=== PATIENT | male | born 1985 | race Caucasian/White ===

== ENCOUNTER 2017-09-08 11:32 | Emergency (ER) | payer OTHER ==
--- NOTE | 2017-09-08 11:57 | PDOC ---
History of Present Illness - History of Present Illness Initial Comments: 09/08/17 13:08 The patient is a 32 year old male, with a significant past medical history of kidney stones and lithotripsy (2 years ago at [facility]), who presents to the emergency department with left flank pain and intermittent nausea since 9AM this morning. The patient states this is a kidney stone. He reports the pain has been increasing in severity since the onset this morning. He reports the pain as localized to the left side of his back, however, also reports some mild left suprapubic discomfort. He denies alleviating or exacerbating factors of pain and rates his current pain a 10/10. He denies chest pain, shortness of breath, headache and dizziness. He denies fever, chills, vomit, diarrhea and constipation. He denies dysuria, frequency, urgency and hematuria. Allergies: NKDA Past surgical history: none reported Social history: Pt reports quitting tobacco 3 months ago. He reports occasional marijuana use. <Mel Juares - Last Filed: 09/08/17 13:08> - History of Present Illness Initial Comments: 09/08/17 14:05 Physical exam: Alert and oriented well-developed well-nourished acute distress due to left flank pain. Cooperative Afebrile, vital signs normal No pallor or icterus. PERRLA, ENT clear Neck supple without bruit mass or nodes Chest clear CV regular without murmur rub or gallop Abdomen nondistended. Bowel sounds normal. Mild CVAT and lower quadrant tenderness without guarding or rebound. No hernias. Testes without masses or tenderness. No urethral discharge Impression: Recurrent renal colic Plan: Symptomatic treatment, CT, and further urological consultation depending on results. <Roberto Cuenca - Last Filed: 09/09/17 07:56> - General Chief Complaint: Pain Stated Complaint: LEFT SIDE BACK GROIN PAIN Time Seen by Provider: 09/08/17 11:57 Past History <Mel Juares - Last Filed: 09/08/17 13:08> <Roberot Cuenca - Last Filed: 09/09/17 07:56> - Past Medical History Allergies/Adverse Reactions: Allergies Allergy/AdvReac Type Severity Reaction Status Date / Time tree nut Allergy Verified 09/09/17 01:27 Home Medications: Ambulatory Orders Amlodipine Besylate [Norvasc -] 10 mg PO DAILY 09/08/17 Losartan Potassium 180 mg PO DAILY 09/08/17 Tamsulosin HCl [Flomax] 0.4 mg PO DAILY #7 cap.er.24h 09/08/17 Ciprofloxacin [Cipro (Restricted To Id)] 500 mg PO BID #14 tablet 09/09/17 Ondansetron [Zofran Odt -] 4 mg SL TID #12 od.tablet 09/09/17 Oxycodone HCl/Acetaminophen [Percocet 5-325 mg Tablet] 1 - 2 tab PO Q4H #20 tablet MDD 8 09/09/17 Review of Systems - Review of Systems Able to Perform ROS?: Yes Comments:: 09/08/17 13:09 CONSTITUTIONAL: Absent: fever, chills, diaphoresis, generalized weakness, malaise, loss of appetite HEENT: Absent: rhinorrhea, nasal congestion, throat pain, throat swelling, difficulty swallowing, mouth swelling, ear pain, eye pain, visual Changes CARDIOVASCULAR: Absent: chest pain, syncope, palpitations, irregular heart rate, lightheadedness , peripheral edema RESPIRATORY: Absent: cough, shortness of breath, dyspnea with exertion, orthopnea, wheezing, stridor, hemoptysis GASTROINTESTINAL: Absent: abdominal pain, abdominal distension, nausea, vomiting, diarrhea, constipation, melena, hematochezia GENITOURINARY: (+) left flank pain and left suprapubic discomfort, Absent: dysuria, frequency, urgency, hesitancy, hematuria, genital pain MUSCULOSKELETAL: Absent: myalgia, arthralgia, joint swelling SKIN: Absent: rash, itching, pallor HEMATOLOGIC/IMMUNOLOGIC: Absent: easy bleeding, easy bruising, lymphadenopathy, frequent infections ENDOCRINE: Absent: unexplained weight gain, unexplained weight loss, heat intolerance, cold intolerance NEUROLOGIC: Absent: headache, focal weakness or paresthesia, dizziness, unsteady gait, seizure, mental status changes, bladder or bowel incontinence PSYCHIATRIC: Absent: anxiety, depression, suicidal or homicidal ideation, hallucinations <Mel Juares - Last Filed: 09/08/17 13:08> *Physical Exam - Vital Signs Last Vital Signs Temp Pulse Resp BP Pulse Ox 98.8 F 81 20 143/95 99 09/08/17 11:33 09/08/17 11:33 09/08/17 11:33 09/08/17 11:33 09/08/17 11:33 - Physical Exam Comments: 09/08/17 13:10 GENERAL: Well developed, well nourished. Awake and alert. No acute distress. HEENT: Normocephalic, atraumatic. PERRLA, EOMI. No conjunctival pallor. Sclera are non- icteric. Moist mucous membranes. Oropharynx is clear. NECK: Supple. Full ROM. No JVD. Carotid pulses 2+ and symmetric, without bruits. No thyromegaly. No lymphadenopathy. CARDIOVASCULAR: Regular rate and rhythm. No murmurs, rubs, or gallops. Distal pulses are 2+ and symmetric. PULMONARY: No evidence of respiratory distress. Lungs clear to auscultation bilaterally. No wheezing, rales or rhonchi. ABDOMINAL: (+) mild left suprapubic/LLQ discomfort to palpation. Soft. Non-distended. No rebound or guarding. No organomegaly. Normoactive bowel sounds. MUSCULOSKELETAL Normal range of motion at all joints. No bony deformities or tenderness. No CVA tenderness. EXTREMITIES: No cyanosis. No clubbing. No edema. No calf tenderness. SKIN: Warm and dry. Normal capillary refill. No rashes. No jaundice. NEUROLOGICAL: Alert, awake, appropriate. Cranial nerves 2-12 intact. No motor deficits in the upper extremities and lower extremities. Normoreflexic in the upper and lower extremities. Normal speech. Gait is normal without ataxia. PSYCHIATRIC: Cooperative. Good eye contact. Appropriate mood and affect. <Mel Juares - Last Filed: 09/08/17 13:08> ED Treatment Course - LABORATORY CBC & Chemistry Diagram: 09/08/17 12:11 09/08/17 12:11 - ADDITIONAL ORDERS Additional order review: Laboratory Results 09/08/17 09/08/17 12:11 12:02 Sodium 133 L Potassium 4.3 Chloride 99 Carbon Dioxide 24 Anion Gap 10 BUN 13 Creatinine 0.7 Creat Clearance w eGFR > 60 Random Glucose 118 H Calcium 9.5 Total Bilirubin 0.9 AST 22 ALT 26 Alkaline Phosphatase 56 Total Protein 7.5 Albumin 4.4 Urine Color Yellow Urine Appearance Clear Urine pH 6.0 Ur Specific [place] >= 1.030 H Urine Protein 1+ H Urine Glucose (UA) Negative Urine Ketones Negative Urine Blood 3+ H Urine Nitrite Negative Urine Bilirubin Negative Urine Urobilinogen 0.2 Ur Leukocyte Esterase Negative Urine RBC 20-30 Urine WBC 3-5 Ur Epithelial Cells Moderate Urine Bacteria Moderate 09/08/17 12:11 RBC 4.75 MCV 88.5 MCHC 33.8 RDW 12.1 MPV 9.2 Neutrophils % 65.0 Lymphocytes % 28.2 Monocytes % 5.4 Eosinophils % 0.7 Basophils % 0.7 - Medications Given in the ED: ED Medications Discontinued Medications Generic Name Dose Route Start Last Admin Trade Name Hernan PRN Reason Stop Dose Admin Sodium Chloride 1,000 mls @ 1,000 mls/hr 09/08/17 11:58 09/08/17 12:13 Normal Saline - IV 09/08/17 12:57 1,000 mls/hr ASDIR STA Administration Ketorolac Tromethamine 30 mg 09/08/17 11:58 09/08/17 12:19 Toradol Injection - IVPUSH 09/08/17 11:59 30 mg ONCE ONE Administration Morphine Sulfate 4 mg 09/08/17 12:55 09/08/17 13:06 Morphine Injection - IVPUSH 09/08/17 12:56 4 mg ONCE ONE Administration Ondansetron HCl 4 mg 09/08/17 12:55 09/08/17 13:07 Zofran Injection IVPB 09/08/17 12:56 4 mg ONCE ONE Administration <Mel Juares - Last Filed: 09/08/17 13:08> - LABORATORY CBC & Chemistry Diagram: 09/08/17 12:11 09/08/17 12:11 <Roberto Cuenca - Last Filed: 09/09/17 07:56> Medical Decision Making - Medical Decision Making 09/08/17 14:23 Laboratories reviewed. CBC and chemistries normal. Urinalysis with blood, 3+, 20 -30 red cells, 3-5 white cells. Likely kidney stone. Unlikely infection Patient is pain-free at present. He states he feels like the stone has passed. He refuses CAT scan at the present time, but will follow up with his primary physician and urologist within one week as recommended. Ibuprofen and Flomax prescribed. To return to the emergency room if there is fever, increased pain, or difficulty urinating, otherwise fully ambulatory and pain-free upon discharge to follow-up as directed 09/09/17 07:54 <Roberto Cuenca - Last Filed: 09/09/17 07:56> *DC/Admit/Observation/Transfer - Attestations Scribe Attestion: 09/08/17 13:10 Documentation prepared by Mel Juares, acting as medical insurance biller for Roberto Sexton MD <Mel Juares - Last Filed: 09/08/17 13:08> - Discharge Dispostion Admit: No <Roberto Cuenca - Last Filed: 09/09/17 07:56> Diagnosis at time of Disposition: Renal colic - Discharge Dispostion Disposition: HOME Condition at time of disposition: Improved - Prescriptions Prescriptions: Tamsulosin HCl [Flomax] 0.4 mg PO DAILY #7 cap.er.24h - Patient Instructions Printed Discharge Instructions: DI for Kidney Stones Additional Instructions: See urologist as soon as possible for further evaluation and treatment Return to the ER if there is severe pain that is uncontrolled with medication, or there is fever/chills, or other urinary tract symptoms.
[2017-09-08] MEDS ORDERED: SODIUM CHLORIDE 1,000 ML IV STA (11:58)
[2017-09-08] MEDS ORDERED: KETOROLAC TROMETHAMINE 30 MG/1 ML VIAL IVPUSH ONE (11:58)
[2017-09-08 12:05] LABS: URINE APPEARANCE Clear; URINE BILIRUBIN Negative (NEGATIVE); URINE GLUCOSE (UA) Negative (NEGATIVE); URINE KETONE Negative (NEGATIVE); URINE LEUK ESTERASE Negative (NEGATIVE); URINE NITRITE Negative (NEGATIVE); URINE UROBILINOGEN 0.2 (0.2-1.0)
[2017-09-08] MEDS ORDERED: KETOROLAC TROMETHAMINE 30 MG/1 ML VIAL ONE (12:05)
[2017-09-08 12:08] LABS: URINE BLOOD 3+ (NEGATIVE); URINE PROTEIN 1+ (NEGATIVE)
[2017-09-08 12:09] LABS: URINE COLOR YELLOW; URINE RBC 20-30 /hpf (0-3)
[2017-09-08 12:10] LABS: URINE BACTERIA MODERATE /hpf (NEGATIVE)
[2017-09-08 12:25] VITALS: BP 143/95; PULSE 81; TEMP 98.8; BMI 28.5
[2017-09-08 12:27] LABS: BASOPHIL 0.7 % (0-2.0); EOSINOPHIL 0.7 % (0-4.5); MCH 29.9 pg (25.7-33.7); MCHC 33.8 g/dl (32.0-35.9); MEAN CELL VOLUME 88.5 fl (80-96); MEAN PLT VOLUME 9.2 fl (7.5-11.1); PLATELET COUNT 256 K/MM3 (134-434); RDW 12.1 % (11.9-15.9); WHITE BLOOD COUNT 10.6 K/mm3 (4.0-10.8)
[2017-09-08 12:45] LABS: ALBUMIN 4.4 g/dl (3.5-5.0); ALK PHOS 56 U/L (32-92); ANION GAP 10 (8-16); BILIRUBIN,TOTAL 0.9 mg/dl (0.2-1.0); CALCIUM 9.5 mg/dl (8.4-10.2); CO2 24 mmol/L (22-28); CREATININE 0.7 mg/dl (0.6-1.3); GLUCOSE,RANDOM 118 mg/dl (74-106); SGOT/AST 22 U/L (10-42); SGPT/ALT 26 U/L (10-40); TOT PROT 7.5 g/dl (6.4-8.3)
[2017-09-08] MEDS ORDERED: morphine CARPU-JECT 4 MG/1 ML DISP.SYRIN IVPUSH ONE (12:55)
[2017-09-08] MEDS ORDERED: ONDANSETRON 4 MG/2 ML VIAL IVPB ONE (12:55)
[2017-09-08] MEDS ORDERED: ONDANSETRON 4 MG/2 ML VIAL ONE (13:01)
[2017-09-08] MEDS ORDERED: morphine CARPU-JECT 2 MG/1 ML DISP.SYRIN ONE (13:01)
== END 2017-09-08 14:32 | disposition home or self-care (01) ==
LOC: FER 11:32 → EDBD 11:32 → FER 14:32
PROC: 3E0333Z Introduction of Anti-inflammatory into Peripheral Vein, Percutaneous Approach (ICD-10-PCS; principal; 2017-09-08)
PROC: 3E033NZ Introduction of Analgesics, Hypnotics, Sedatives into Peripheral Vein, Percutaneous Approach (ICD-10-PCS; 2017-09-08)
PROC: 3E033GC Introduction of Other Therapeutic Substance into Peripheral Vein, Percutaneous Approach (ICD-10-PCS; 2017-09-08)
PROC: 3E0337Z Introduction of Electrolytic and Water Balance Substance into Peripheral Vein, Percutaneous Approach (ICD-10-PCS; 2017-09-08)
DX: N23 Unspecified renal colic (principal)
CPT/HCPCS: 36415; 80053; 81003; 81015; 85025; 99282-25

== ENCOUNTER 2017-09-09 01:16 | Emergency (ER) | payer OTHER ==
--- NOTE | 2017-09-09 01:25 | PDOC ---
History of Present Illness - General Stated Complaint: KIDNEY STONE Time Seen by Provider: 09/09/17 01:23 History Source: Patient Exam Limitations: No Limitations - History of Present Illness Initial Comments: 09/09/17 01:38 This is a 32-year-old male who comes in complaining of left flank pain. Patient has long history of multiple kidney stones in the past. However patient status number years since he had a kidney stone. Patient was here earlier today though for left flank pain. Patient was given pain medication and felt better. Patient did not want a CAT scan that point. Patient was given prescriptions for Motrin and Flomax and told to follow-up with his urologist. Patient did not is get his prescriptions filled and now returns to the emergency room with an increase in his pain patient is also. Patient is also complaining of some nausea. PAST MEDICAL HISTORY: no significant history PAST SURGICAL HISTORY: no significant history FAMILY HISTORY: no pertinant history SOCIAL HISTORY: Pt lives with family and is employed. MEDICATIONS: reviewed ALLERGIES: As per nursing notes Review of Systems General: No fevers or chills, no weakness, no weight loss HEENT: No change in vision. No sore throat,. No ear pain CardioVascular: No chest pain or shortness of breath Respiratory:No cough, or wheezing. Gastrointestinal: no nausea, vomitting, diarrhea or constipation, No rectal bleeding Genitourinary: + dysuria earlier today none now, + left flank pain Musculoskeletal: No joint or muscle pain or swelling Neurologic: No headache, vertigo, dizziness or loss of consciousness Psychiatric: nor depression Skin: No rashes or easy bruising Endocrine: no increased thirst or abnormal weight change Allergic: no skin or latex allergy All other systems reviewed and normal GENERAL: The patient is awake, alert, and fully oriented, in no acute distress. HEAD: Normal with no signs of trauma. EYES: Pupils equal, round and reactive to light, extraocular movements intact, sclera anicteric, conjunctiva clear. Back/Flank pain: There is tenderness on palpation over the left CVA area and left flank. EXTREMITIES: Normal range of motion, no edema. NEUROLOGICAL: Normal speech, normal gait. PSYCH: Normal mood, normal affect. SKIN: Warm, Dry, normal turgor, no rashes or lesions noted. CAT scan shows 2 stones one a 12 x 9 mm stone at the left UPJ and a smaller second one a 3 x 5 mm stone in the proximal ureter. There is an associated moderate amount of hydronephrosis with some mild perinephric stranding. In review of patient's labs from earlier in the day patient did have a moderate amount of bacteria and his urinalysis however there was only a few white cells and the results with some epithelial cells so this most likely was a contaminated specimen. Given the size of the stones however I'm starting patient on an antibiotic prophylactically to prevent infection. Patient is comfortable at this time. I didn't prescriptions for Percocet to patient's pharmacy as well as 4 Zofran. Patient was given the name of a urologist and told he needs to call the urologist in the morning and follow-up with a urologist tomorrow. Patient given copies of his CAT scan and discharged home. Past History - Past Medical History Allergies/Adverse Reactions: Allergies Allergy/AdvReac Type Severity Reaction Status Date / Time tree nut Allergy Verified 09/09/17 01:27 Home Medications: Ambulatory Orders Amlodipine Besylate [Norvasc -] 10 mg PO DAILY 09/08/17 Losartan Potassium 180 mg PO DAILY 09/08/17 Tamsulosin HCl [Flomax] 0.4 mg PO DAILY #7 cap.er.24h 09/08/17 Ciprofloxacin [Cipro (Restricted To Id)] 500 mg PO BID #14 tablet 09/09/17 Ondansetron [Zofran Odt -] 4 mg SL TID #12 od.tablet 09/09/17 Oxycodone HCl/Acetaminophen [Percocet 5-325 mg Tablet] 1 - 2 tab PO Q4H #20 tablet MDD 8 09/09/17 HTN: Yes - Suicide/Smoking/Psychosocial Hx Smoking History: Never smoked Have you smoked in the past 12 months: No Hx Alcohol Use: No Drug/Substance Use Hx: No Substance Use Type: None *DC/Admit/Observation/Transfer Diagnosis at time of Disposition: Renal colic on left side - Discharge Dispostion Disposition: HOME Condition at time of disposition: Stable Admit: No - Prescriptions Prescriptions: Ciprofloxacin [Cipro (Restricted To Id)] 500 mg PO BID #14 tablet Oxycodone HCl/Acetaminophen [Percocet 5-325 mg Tablet] 1 - 2 tab PO Q4H #20 tablet MDD 8 Ondansetron [Zofran Odt -] 4 mg SL TID #12 od.tablet - Patient Instructions Additional Instructions: For the pain take Percocet one or 2 tablets as often as every 4-6 hours if needed. In addition to the Percocet take the ibuprofen as prescribed. Also take the Flomax as prescribed. If you develop nausea take the Zofran and let it dissolve underneath your tongue and wait 15-20 minutes before taking the Percocet or anything by mouth to keep from vomiting your medication. Call Dr. Sales at [phone] in the morning for an appointment. Return to the emergency department immediately with ANY new, persistent or worsening symptoms. Continue any medications as previously prescribed by your physician. You should follow up with your primary doctor as soon as possible regarding today's emergency department visit. . Please make sure your doctor reviews the results of your emergency evaluation. Thank you for coming to the Emergency Department today for your care. It was a pleasure to see you today. Please note that your evaluation is INCOMPLETE until you follow-up with your doctor.
[2017-09-09] MEDS ORDERED: KETOROLAC TROMETHAMINE 30 MG/1 ML VIAL IVPUSH ONE (01:33)
[2017-09-09] MEDS ORDERED: SODIUM CHLORIDE 1,000 ML IV ONE (01:33)
[2017-09-09] MEDS ORDERED: ONDANSETRON 4 MG/2 ML VIAL IVPB ONE (01:33)
[2017-09-09 01:36] VITALS: TEMP 98.5; BMI 28.5
[2017-09-09] MEDS ORDERED: morphine CARPU-JECT 4 MG/1 ML DISP.SYRIN IVPUSH ONE (01:37)
[2017-09-09 02:04] VITALS: BP 132/89; PULSE 98
[2017-09-09] MEDS ORDERED: CIPROFLOXACIN 500 MG TABLET (RESTRICTED TO ID) PO ONE (02:15)
[2017-09-09] MEDS ORDERED: CIPROFLOXACIN 250 MG TABLET (RESTRICTED TO ID) PO ONE (02:15)
== END 2017-09-09 02:19 | disposition home or self-care (01) ==
LOC: FER 01:16
PROC: 3E0333Z Introduction of Anti-inflammatory into Peripheral Vein, Percutaneous Approach (ICD-10-PCS; principal; 2017-09-09)
PROC: 3E033NZ Introduction of Analgesics, Hypnotics, Sedatives into Peripheral Vein, Percutaneous Approach (ICD-10-PCS; 2017-09-09)
PROC: 3E033GC Introduction of Other Therapeutic Substance into Peripheral Vein, Percutaneous Approach (ICD-10-PCS; 2017-09-09)
PROC: 3E0337Z Introduction of Electrolytic and Water Balance Substance into Peripheral Vein, Percutaneous Approach (ICD-10-PCS; 2017-09-09)
DX: N23 Unspecified renal colic (principal); I10 Essential (primary) hypertension
CPT/HCPCS: 74176; 99281-25

== ENCOUNTER 2018-08-22 23:30 | Emergency (ER) | payer OTHER ==
[2018-08-22] MEDS ORDERED: SODIUM CHLORIDE 1,000 ML IV STA (23:34)
[2018-08-22] MEDS ORDERED: KETOROLAC TROMETHAMINE 30 MG/1 ML VIAL IVPUSH ONE (23:34)
--- NOTE | 2018-08-22 23:34 | PDOC ---
History of Present Illness - General Chief Complaint: Pain, Acute Stated Complaint: KIDNEY STONES Time Seen by Provider: 08/22/18 23:33 - History of Present Illness Initial Comments: 08/23/18 00:28 This 33-year-old man with a history of HTN and long history of kidney stones presents with a one-day history of right flank/right lower quadrant pain. Pain is typical of his renal colic pain and is accompanied by nausea. Patient was last in this ER on 09/09/17 when he had a large (8 x 11 mm) left UPJ stone. He required lithotripsy for passage of the stone. Patient states that he typically has large stones on the left side and groups of small stones on the right side. No interim symptoms of renal colic between August 2017 and now. Past History - Past Medical History Allergies/Adverse Reactions: Allergies Allergy/AdvReac Type Severity Reaction Status Date / Time Penicillins Allergy Verified 08/22/18 23:32 tree nut Allergy Verified 09/09/17 01:27 Home Medications: Ambulatory Orders Losartan Potassium 100 mg PO DAILY 09/08/17 Tamsulosin HCl [Flomax] 0.4 mg PO DAILY #7 cap.er.24h 09/08/17 Metoprolol Tartrate 100 mg PO DAILY 08/22/18 Spironolactone 25 mg PO DAILY 08/22/18 Ondansetron [Zofran Odt -] 4 mg SL BID #10 od.tablet 08/23/18 Oxycodone HCl/Acetaminophen [Percocet 5-325 mg Tablet] 1 tab PO Q6H PRN #16 tablet MDD 4 tabs 08/23/18 HTN: Yes - Suicide/Smoking/Psychosocial Hx Smoking History: Never smoked Have you smoked in the past 12 months: No Hx Alcohol Use: No Drug/Substance Use Hx: No Substance Use Type: None Review of Systems - Review of Systems Able to Perform ROS?: Yes Comments:: 12 point review of systems is negative except for what is noted in the history of present illness *Physical Exam - Physical Exam Comments: GENERAL: Adult male, in marked distress secondary to right lower quadrant/right flank pain HEAD: Normal with no signs of trauma. EYES: PERRLA, EOMI, sclera anicteric, conjunctiva clear. ENT: Ears normal, nares patent, oropharynx clear without exudates. Dry mucous membranes. NECK: Normal range of motion, supple without lymphadenopathy, JVD, or masses. LUNGS: Breath sounds equal, clear to auscultation bilaterally. No wheezes, and no crackles. HEART:Regular rate and rhythm, normal S1 and S2 without murmur, rub or gallop. ABDOMEN:.normal bowel sounds right flank/right lower quadrant tenderness No guarding or rebound.No masses No distention. EXTREMITIES: Normal range of motion, no edema. No clubbing or cyanosis. No erythema, or tenderness. NEUROLOGICAL: Cranial nerves II through XII grossly intact. Normal speech. No focal neurological deficits. MUSCULOSKELETAL: Back non-tender to palpation, no CVA tenderness SKIN: Warm, Dry, normal turgor, no rashes or lesions noted. Progress Note - Progress Note Progress Note: The patient received a liter normal saline and 30 mg Toradol IV for preliminary treatment of symptoms consistent with his usual renal colic presentation. Patient was not able to provide urinalysis initially. After patient had progression of pain after Toradol IV, patient given Dilaudid 1 mg IV. Patient initially had improvement in pain level after Dilaudid 1 mg IV. However , after approximately half hour, pain recurred and patient required an additional 1 mg of Dilaudid IV. Meanwhile, CT of the abdomen and pelvis without contrast was performed to evaluate for ureteral stone/hydronephrosis or other acute intra-abdominal/ intrapelvic process. CT was normal except for a 5 mm stone at the right UVJ junction with moderate hydronephrosis and ureteral distention. Again, patient had good pain relief after second dose of Dilaudid 1 mg IV. However, there was recurrence of the pain and patient requested morphine since in his previous episodes of renal colic, morphine provided more long lasting pain relief. Patient given morphine 4 mg IV. Patient had significant improvement in his renal colic pain. Additional Zofran 4 mg IV given for persistent nausea. Results discussed with the patient. Patient was discharged with instructions to continue to drink plenty of water as tolerated. Prescriptions for Percocet 5/325 over 6 hours as needed for pain (#16) and Zofran ODT 4 mg up to twice a day (#10) sent to pharmacy. The patient will follow-up with Dr. Sales who follow the patient during his previous episode of renal colic in 2017. Patient return to the ER if he has worsening pain/vomiting despite use of outpatient analgesic/antiemetic. *DC/Admit/Observation/Transfer Diagnosis at time of Disposition: Renal colic - Discharge Dispostion Disposition: HOME Condition at time of disposition: Stable - Prescriptions Prescriptions: Ondansetron [Zofran Odt -] 4 mg SL BID #10 od.tablet Oxycodone HCl/Acetaminophen [Percocet 5-325 mg Tablet] 1 tab PO Q6H PRN #16 tablet MDD 4 tabs PRN Reason: Severe Pain - Referrals Referrals: Truman Sales MD [Staff Physician] - 3 days - Patient Instructions Printed Discharge Instructions: Kidney Stones -- Adult Additional Instructions: drink plenty of fluids Percocet 5/325 1 tab every 6 hours as needed for pain followup with urologist within 2-3 days return to ER if pain is severe or you have vomiting/fever - Post Discharge Activity
[2018-08-22] MEDS ORDERED: HYDROmorphone HCL CARPU-JECT 1 MG/1 ML DISP.SYRIN IVPUSH ONE (23:48)
[2018-08-22 23:50] VITALS: TEMP 97.3; BMI 29.1
[2018-08-22] MEDS ORDERED: HYDROmorphone HCL CARPU-JECT 1 MG/1 ML DISP.SYRIN ONE (23:51)
[2018-08-23] MEDS ORDERED: HYDROmorphone HCL CARPU-JECT 1 MG/1 ML DISP.SYRIN ONE (00:17)
[2018-08-23] MEDS ORDERED: HYDROmorphone HCL CARPU-JECT 1 MG/1 ML DISP.SYRIN IVPUSH ONE (00:17)
[2018-08-23] MEDS ORDERED: ONDANSETRON 4 MG/2 ML VIAL ONE (00:25)
[2018-08-23] MEDS ORDERED: ONDANSETRON 4 MG/2 ML VIAL IVPUSH ONE (00:26)
[2018-08-23] MEDS ORDERED: morphine CARPU-JECT 4 MG/1 ML DISP.SYRIN IVPUSH ONE (01:08)
[2018-08-23] MEDS ORDERED: morphine SULFATE 4 MG/ML VIAL ONE (01:08)
[2018-08-23 01:10] VITALS: BP 112/77; PULSE 99
[2018-08-23] MEDS ORDERED: SODIUM CHLORIDE 1,000 ML IV STA (01:11)
[2018-08-23 02:49] LABS: URINE APPEARANCE CLEAR; URINE BILIRUBIN NEGATIVE (<2.0 mg/dL); URINE COLOR YELLOW; URINE GLUCOSE (UA) NEGATIVE (NEGATIVE); URINE KETONE TRACE (NEGATIVE); URINE LEUK ESTERASE TRACE (NEGATIVE); URINE NITRITE NEGATIVE (NEGATIVE); URINE UROBILINOGEN NEGATIVE mg/dL (0.2-1.0)
[2018-08-23 02:53] LABS: URINE PROTEIN 1+ (NEGATIVE)
[2018-08-23 03:03] LABS: EPI CELLS FEW /HPF (FEW); URINE BACTERIA RARE /hpf (NONE SEEN); URINE MUCUS RARE
== END 2018-08-23 02:01 | disposition home or self-care (01) ==
LOC: FER 23:30
PROC: 3E033NZ Introduction of Analgesics, Hypnotics, Sedatives into Peripheral Vein, Percutaneous Approach (ICD-10-PCS; principal; 2018-08-22)
PROC: 3E0333Z Introduction of Anti-inflammatory into Peripheral Vein, Percutaneous Approach (ICD-10-PCS; 2018-08-22)
PROC: 3E033GC Introduction of Other Therapeutic Substance into Peripheral Vein, Percutaneous Approach (ICD-10-PCS; 2018-08-22)
PROC: 3E0337Z Introduction of Electrolytic and Water Balance Substance into Peripheral Vein, Percutaneous Approach (ICD-10-PCS; 2018-08-22)
DX: N20.0 Calculus of kidney (principal); I10 Essential (primary) hypertension
CPT/HCPCS: 74176; 81003; 81015; 87086; 99282-25; J7030

== ENCOUNTER 2019-06-08 09:10 | Emergency (ER) | payer OTHER ==
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
[2019-06-08 09:48] VITALS: TEMP 98.4; BMI 29.9
[2019-06-08] MEDS ORDERED: ACETAMINOPHEN 1000 MG/100 ML VIAL (NON FORMULARY) IVPB ONE (10:24)
[2019-06-08] MEDS ORDERED: ACETAMINOPHEN 500 MG TABLET (FP) PO ONE (10:28)
[2019-06-08] MEDS ORDERED: ACETAMINOPHEN 325 MG TABLET (FP) ONE (10:29)
[2019-06-08 10:40] LABS: ALBUMIN 3.9 g/dl (3.4-5.0); ALK PHOS 40 U/L (45-117); ANION GAP 9 MMOL/L (8-16); BILIRUBIN,TOTAL 0.4 mg/dL (0.2-1); BLOOD UREA NITROGEN 20.2 mg/dL (7-18); CALCIUM 9.3 mg/dL (8.5-10.1); CHLORIDE 105 mmol/L (98-107); CO2 24 mmol/L (21-32); CREATININE 0.8 mg/dL (0.55-1.3); GLUCOSE,RANDOM 80 mg/dL (74-106); POTASSIUM 4.4 mmol/L (3.5-5.1); SGOT/AST 13 U/L (15-37); SGPT/ALT 19 U/L (13-61); SODIUM 137 mmol/L (136-145); TOT PROT 7.7 g/dl (6.4-8.2)
[2019-06-08] MEDS ORDERED: SODIUM CHLORIDE 1,000 ML IV STA (12:28)
--- NOTE | 2019-06-08 13:18 | EKG ---
Test Reason : Blood Pressure : / mmHG Vent. Rate : 097 BPM Atrial Rate : 097 BPM P-R Int : 152 ms QRS Dur : 106 ms QT Int : 364 ms P-R-T Axes : 036 049 046 degrees QTc Int : 462 ms NORMAL SINUS RHYTHM INCOMPLETE RIGHT BUNDLE BRANCH BLOCK BORDERLINE ECG NO PREVIOUS ECGS AVAILABLE Confirmed by RODNEY GRIGSBY, BRIDGER ([id number]) on 06/08/2019 1:17:48 PM Referred By: Confirmed By:BRIDGER STEVENS MD
[2019-06-08] MEDS ORDERED: ONDANSETRON 4 MG/2 ML VIAL IVPUSH ONE (13:46)
[2019-06-08] MEDS ORDERED: ONDANSETRON 4 MG/2 ML VIAL ONE (13:56)
[2019-06-08 14:30] VITALS: BP 115/68; PULSE 105
== END 2019-06-08 14:59 | disposition home or self-care (01) ==
LOC: JER 09:10
PROC: 3E033GC Introduction of Other Therapeutic Substance into Peripheral Vein, Percutaneous Approach (ICD-10-PCS; principal; 2019-06-08)
PROC: 3E0337Z Introduction of Electrolytic and Water Balance Substance into Peripheral Vein, Percutaneous Approach (ICD-10-PCS; 2019-06-08)
DX: R07.89 Other chest pain (principal); V43.52XA Car driver injured in collision with other type car in traffic accident, initial encounter; Y93.89 Activity, other specified; Y92.410 Unspecified street and highway as the place of occurrence of the external cause; I10 Essential (primary) hypertension
CPT/HCPCS: 36415; 71046-TC-FY; 71260-TC; 73562-TC-LT-FY; 80053; 82550; 84484; 93005; 93010; 99282-25; J7030

== ENCOUNTER 2022-04-16 06:31 | Emergency (ER) | payer SELFPAY ==
[2022-04-16] MEDS ORDERED: KETOROLAC TROMETHAMINE 30 MG/1 ML VIAL IVPUSH ONE (06:33)
[2022-04-16] MEDS ORDERED: SODIUM CHLORIDE 1,000 ML IV STA (06:33)
[2022-04-16] MEDS ORDERED: morphine CARPU-JECT 4 MG/1 ML DISP.SYRIN IVPUSH ONE (06:33)
[2022-04-16] MEDS ORDERED: ONDANSETRON 4 MG/2 ML VIAL IVPUSH ONE (06:33)
[2022-04-16 06:58] VITALS: TEMP 98.4; BMI 31.4
[2022-04-16 07:44] LABS: HEMATOCRIT 37.6 % (35.4-49); HEMOGLOBIN 13.1 G/dL (11.7-16.9); MCHC 34.9 g/dl (32.0-35.9); MEAN PLT VOLUME 8.8 fl (7.5-11.1); RBC 4.23 10^6/uL (4.00-5.60); RDW 13.4 % (11.9-15.9); WHITE BLOOD COUNT 11.4 10^3/uL (4.0-10.8)
[2022-04-16 07:51] VITALS: BP 126/84; PULSE 87
[2022-04-16 07:52] LABS: ALBUMIN 3.5 g/dl (3.4-5.0); BILIRUBIN,TOTAL 0.3 mg/dl (0.2-1); CALCIUM 9.3 mg/dl (8.5-10); CREATININE 0.8 mg/dl (0.55-1.3); TOT PROT 6.7 g/dl (6.4-8.2)
[2022-04-16 08:28] LABS: EPITHELIAL CELLS FEW /hpf
[2022-04-16 08:48] LABS: PLATELET ESTIMATE ADEQUATE
== END 2022-04-16 08:55 | disposition home or self-care (01) ==
LOC: FER 06:31
PROC: 3E0333Z Introduction of Anti-inflammatory into Peripheral Vein, Percutaneous Approach (ICD-10-PCS; principal; 2022-04-16)
PROC: 3E033GC Introduction of Other Therapeutic Substance into Peripheral Vein, Percutaneous Approach (ICD-10-PCS; 2022-04-16)
PROC: 3E033GC Introduction of Other Therapeutic Substance into Peripheral Vein, Percutaneous Approach (ICD-10-PCS; 2022-04-16)
PROC: 3E0337Z Introduction of Electrolytic and Water Balance Substance into Peripheral Vein, Percutaneous Approach (ICD-10-PCS; 2022-04-16)
DX: N23 Unspecified renal colic (principal)
CPT/HCPCS: 36415; 80053; 81003; 81015; 85027; 87086; 99285-25